=== PATIENT | male | born 1970 | race Asian ===

== ENCOUNTER 2021-12-08 11:03 | Inpatient (IN) | payer OTHER ==
[2021-12-08] VITALS (10 sets, daily range): BP systolic 110–148; BP diastolic 53–81
[~2021-12-08] VITALS: Ht 167.6 cm; Wt 72.2 kg
[2021-12-08] MEDS ORDERED: IOHEXOL 350 MG/ML 100ML INFUS..BTL IV ONE (14:21)
[2021-12-08] MEDS ORDERED: IOHEXOL-350 50ML VIAL IV ONE (14:21)
[2021-12-08] MEDS ORDERED: MIDAZOLAM HCL 1 MG/ML 2ML VIAL ONE ×2 (14:21→15:44)
[2021-12-08] MEDS ORDERED: FENTANYL CITRATE PF 50 MCG/1 ML 2ML VIAL ONE ×2 (14:22→15:44)
[2021-12-08] MEDS ORDERED: LIDOCAINE HCL 1% MDV 50ML VIAL ONE (14:22)
[2021-12-08] MEDS ORDERED: NITROGLYCERIN 50MG VIAL ONE (14:23)
[2021-12-08 14:53] LABS: HEMATOCRIT 40.6 % (42-54); MEAN CORPUSCULAR HEMOGLOBIN 27.6 pg (27.0-33.0); MEAN CORPUSCULAR VOLUME 83.5 fL (79-99); RED BLOOD CELL COUNT(AUTO) 4.86 MIL/uL (4.50-6.20); RED CELL DISTRIBUTION WIDTH 12.5 % (11.0-15.5); WHITE BLOOD COUNT (AUTO) 4.6 K/uL (4.8-10.8)
[2021-12-08 15:15] LABS: HEMOGLOBIN A1C 5.9 % (4.0-6.0)
[2021-12-08 15:18] LABS: MAGNESIUM 2.1 mg/dL (1.80-2.40)
[2021-12-08 15:23] LABS: THYROID STIMULATING HORMONE 0.02 uIU/mL (0.36-3.74)
[2021-12-08 15:26] LABS: INR 1.06 (0.85-1.15); PROTHROMBIN TIME 11.5 SEC (9.6-11.6)
[2021-12-08 15:27] LABS: CREATININE 0.7 mg/dL (0.5-1.5); PARTIAL THROMBOPLASTIN TIME 44.9 SEC (26.3-35.5)
[2021-12-08] MEDS ORDERED: HEPARIN 10,000 UNIT/10ML (1,000 UNIT/ML) VIAL ONE (15:58)
[2021-12-08] MEDS ORDERED: 0.9%NACL 1000ML 1,000 ML IV SCH (16:30)
[2021-12-08] MEDS ORDERED: DEXTROSE 50%-WATER 50 ML DISP.SYRIN IV PRN (16:30)
[2021-12-08] MEDS ORDERED: GLUCAGON 1MG KIT 1 MG ML IM PRN (16:30)
[2021-12-08] MEDS ORDERED: PHARMACY COMMUNICATION MISC SCH (17:00)
[2021-12-08 17:23] LABS: CHOLESTEROL 156 mg/dL (<200); HDL CHOLESTEROL 43 mg/dL (29-71); LDL DIRECT 102 mg/dL (0-99); TRIGLYCERIDES 51 mg/dL (30-200)
[2021-12-08 18:28] LABS: HEMATOCRIT 38.3 % (42-54); MEAN CORPUSCULAR HEMOGLOBIN 27.7 pg (27.0-33.0); MEAN CORPUSCULAR HGB CONC 32.4 g/dL (32.0-36.0); MEAN CORPUSCULAR VOLUME 85.5 fL (79-99); RED BLOOD CELL COUNT(AUTO) 4.48 MIL/uL (4.50-6.20); RED CELL DISTRIBUTION WIDTH 12.6 % (11.0-15.5); WHITE BLOOD COUNT (AUTO) 4.6 K/uL (4.8-10.8)
[2021-12-08 20:17] LABS: HEMATOCRIT 38.7 % (42-54); MEAN CORPUSCULAR HEMOGLOBIN 27.9 pg (27.0-33.0); MEAN CORPUSCULAR HGB CONC 32.8 g/dL (32.0-36.0); MEAN CORPUSCULAR VOLUME 85.1 fL (79-99); RED BLOOD CELL COUNT(AUTO) 4.55 MIL/uL (4.50-6.20); RED CELL DISTRIBUTION WIDTH 12.6 % (11.0-15.5); WHITE BLOOD COUNT (AUTO) 5.1 K/uL (4.8-10.8)
[2021-12-08] MEDS: METOPROLOL TARTRATE 25 MG TAB PO SCH (21:50)
[2021-12-08] MEDS: METHIMAZOLE 10 MG TAB PO SCH (21:50)
[2021-12-09] VITALS (7 sets, daily range): BP systolic 103–124; BP diastolic 58–81
[2021-12-09] MEDS ORDERED: LORAZEPAM 1 MG TABLET ONE (00:36)
[2021-12-09 00:39] LABS: APPEARANCE,URINE Clear (CLEAR); BILIRUBIN,URINE Negative (NEGATIVE); COLOR,URINE Yellow (YELLOW); GLUCOSE, URINE (UA) Negative (NEGATIVE); KETONES,URINE 15 mg/dL (NEGATIVE); LEUKOCYTE ESTERASE ,URINE Negative (NEGATIVE); NITRATE,URINE Negative (NEGATIVE); OCCULT BLOOD,URINE Trace (NEGATIVE); PH,URINE 5.5 (5.0-8.0); PROTEIN,URINE Negative (NEGATIVE); UROBILINOGEN,URINE 0.2 mg/dL (0.2-1.0)
[2021-12-09 00:54] LABS: BACTERIA,URINE Rare /HPF (None Seen); SQUAMOUS EPITHELIAL CELL,UR 0-2 /HPF (0-2); WBC,URINE None Seen /HPF (0-1)
[2021-12-09] MEDS ORDERED: LORAZEPAM 1 MG TABLET PO ONE (01:00)
[2021-12-09 06:26] LABS: BASOPHILS % (AUTO) 0.6 % (0.0-5.0); EOSINOPHILS % (AUTO) 0.9 % (0.0-8.0); HEMATOCRIT 38.8 % (42-54); LYMPHOCYTES % (AUTO) 20.8 % (21.0-51.0); MEAN CORPUSCULAR HEMOGLOBIN 28.3 pg (27.0-33.0); MEAN CORPUSCULAR VOLUME 85.8 fL (79-99); MONOCYTES % (AUTO) 9.3 % (3.0-13.0); NEUTROPHILS % (AUTO) 68.1 % (40.0-77.0); PLATELET COUNT (AUTO) 206 K/uL (130-400); RED BLOOD CELL COUNT(AUTO) 4.52 MIL/uL (4.50-6.20); RED CELL DISTRIBUTION WIDTH 12.7 % (11.0-15.5); WHITE BLOOD COUNT (AUTO) 6.4 K/uL (4.8-10.8)
[2021-12-09 06:33] LABS: ALBUMIN 3.5 g/dL (3.5-5.0); BILIRUBIN,TOTAL 0.8 mg/dL (0.2-1.0); CREATININE 0.8 mg/dL (0.5-1.5); MAGNESIUM 2.2 mg/dL (1.80-2.40); TOTAL PROTEIN, SERUM 6.9 g/dL (6.0-8.3)
[2021-12-09] MEDS: METOPROLOL TARTRATE 25 MG TAB PO SCH ×2 (08:50→20:41)
[2021-12-09] MEDS: ASPIRIN 81 MG EC TAB PO SCH (08:50)
[2021-12-09] MEDS: EZETIMIBE 10 MG TAB PO SCH (08:50)
[2021-12-09] MEDS: PANTOPRAZOLE 40 MG TAB DR PO SCH (08:50)
[2021-12-09] MEDS: METHIMAZOLE 10 MG TAB PO SCH ×2 (08:50→20:41)
[2021-12-09] MEDS ORDERED: ATORVASTATIN 40 MG TABLET PO SCH (21:00)
[2021-12-10 03:37] LABS: BASOPHILS % (AUTO) 0.6 % (0.0-5.0); EOSINOPHILS % (AUTO) 2.1 % (0.0-8.0); HEMATOCRIT 39.2 % (42-54); LYMPHOCYTES % (AUTO) 35.1 % (21.0-51.0); MEAN CORPUSCULAR HGB CONC 32.9 g/dL (32.0-36.0); MONOCYTES % (AUTO) 13.9 % (3.0-13.0); NEUTROPHILS % (AUTO) 48.3 % (40.0-77.0); PLATELET COUNT (AUTO) 194 K/uL (130-400); RED BLOOD CELL COUNT(AUTO) 4.61 MIL/uL (4.50-6.20); RED CELL DISTRIBUTION WIDTH 12.5 % (11.0-15.5); WHITE BLOOD COUNT (AUTO) 4.8 K/uL (4.8-10.8)
[2021-12-10 03:49] VITALS: BP 106/69
[2021-12-10 04:25] LABS: ALBUMIN 3.6 g/dL (3.5-5.0); BILIRUBIN,TOTAL 0.9 mg/dL (0.2-1.0); CREATININE 0.8 mg/dL (0.5-1.5); POTASSIUM 4.3 mmol/L (3.5-5.1); TOTAL PROTEIN, SERUM 7.1 g/dL (6.0-8.3)
[2021-12-10 08:00] VITALS: BP 115/73
[2021-12-10] MEDS: ASPIRIN 81 MG EC TAB PO SCH (08:48)
[2021-12-10] MEDS: EZETIMIBE 10 MG TAB PO SCH (08:48)
[2021-12-10] MEDS: METHIMAZOLE 10 MG TAB PO SCH (08:48)
[2021-12-10] MEDS: METOPROLOL TARTRATE 25 MG TAB PO SCH (08:48)
[2021-12-10] MEDS: PANTOPRAZOLE 40 MG TAB DR PO SCH (08:48)
[2021-12-10] MEDS ORDERED: METH-387 PO (09:19)
[2021-12-10 12:34] VITALS: BP 113/82
[2021-12-23] MEDS ORDERED: [UNRECOGNIZED DRUG - OTHER] PO (09:40)
[2021-12-23] MEDS ORDERED: METO25TA6 PO (09:40)
[2021-12-23] MEDS ORDERED: CLOP75TA32 PO (09:40)
[2021-12-23] MEDS ORDERED: FISH1CAP63 PO (09:40)
[2021-12-23] MEDS ORDERED: ASCO100031 PO (09:40)
[2021-12-23] MEDS ORDERED: ISOS30TA92 PO (09:40)
[2021-12-23] MEDS ORDERED: ASPI-1443 PO (09:40)
[2021-12-23] MEDS ORDERED: ZINC220T4 PO (09:40)
[2021-12-23] MEDS ORDERED: PANT40TA54 PO (09:40)
[2021-12-23] MEDS ORDERED: VITAD50000 PO (09:40)
[2021-12-23] MEDS ORDERED: METH-386 PO (09:40)
[2021-12-25] MEDS ORDERED: FERR-82 PO (02:38)
[2021-12-25] MEDS ORDERED: FURO20TA4 PO (02:46)
[2021-12-25] MEDS ORDERED: PANT40TA55 PO (02:46)
[2021-12-25] MEDS ORDERED: METO-408 PO (02:46)
[2021-12-25] MEDS ORDERED: MEMA10TA11 PO (02:46)
[2021-12-25] MEDS ORDERED: MIRT-22 PO (02:46)
[2021-12-25] MEDS ORDERED: SENN-216 PO (02:46)
[2021-12-25] MEDS ORDERED: ROSU20TA31 PO (02:46)
[2021-12-25] MEDS ORDERED: DONE-53 PO (02:46)
[2021-12-25] MEDS ORDERED: SUCR1TAB2 PO (02:53)
[2021-12-25] MEDS ORDERED: ISOS30TA92 PO (10:58)
[2021-12-25] MEDS ORDERED: CLOP75TA14 PO (10:58)
== END 2021-12-10 15:14 | disposition home or self-care (01) | DRG 282 ==
LOC: 2DH 13:31
PROVIDERS: ADMIT Internal Medicine; ATTEND Internal Medicine
PROC: 4A023N7 Measurement of Cardiac Sampling and Pressure, Left Heart, Percutaneous Approach (ICD-10-PCS; principal; 2021-12-08)
PROC: B2111ZZ Fluoroscopy of Multiple Coronary Arteries using Low Osmolar Contrast (ICD-10-PCS; 2021-12-08)
PROC: B41J1ZZ Fluoroscopy of Other Lower Arteries using Low Osmolar Contrast (ICD-10-PCS; 2021-12-08)
DX: I21.4 Non-ST elevation (NSTEMI) myocardial infarction (principal); E05.00 Thyrotoxicosis with diffuse goiter without thyrotoxic crisis or storm; E78.5 Hyperlipidemia, unspecified; K21.9 Gastro-esophageal reflux disease without esophagitis; I25.110 Atherosclerotic heart disease of native coronary artery with unstable angina pectoris; D72.819 Decreased white blood cell count, unspecified; Z79.82 Long term (current) use of aspirin; Z79.899 Other long term (current) drug therapy
CPT/HCPCS: 36415; 76536; 80048; 80053; 80061; 81001; 82550; 83036; 83735; 84145; 84439; 84443; 84445; 84481; 85025; 85027; 85347; 85610; 85651; 85730; 86140; 86376; 86800; 87804; 93458; 99156; 99157; C1894; G0378; J1644; J2250; J3010; J3490; J7030; Q9967

== ENCOUNTER 2022-02-08 13:11 | Emergency (ER) | payer OTHER ==
[~2022-02-08] VITALS: Ht 165.1 cm; Wt 72.6 kg
[~2022-02-08 13:11] MED LIST: ASCO100031 PO; ASPI-1443 PO; CLOP75TA14 PO; DONE-53 PO; FERR-82 PO; FURO20TA4 PO; ISOS30TA92 PO; MEMA10TA11 PO; METO-408 PO; MIRT-22 PO; PANT40TA54 PO; ROSU20TA31 PO; SENN-216 PO; SUCR1TAB2 PO; VITAD50000 PO
[2022-02-08] MEDS ORDERED: NITROGLYCERIN 1GM OINT 1 INCH/1GM TD ONE (14:00)
[2022-02-08] MEDS ORDERED: ASPIRIN 81MG CHEW TAB PO ONE (14:00)
[2022-02-08 14:40] LABS: BASOPHILS % (AUTO) 0.9 % (0.0-5.0); EOSINOPHILS % (AUTO) 1.4 % (0.0-8.0); HEMATOCRIT 39.3 % (42-54); LYMPHOCYTES % (AUTO) 41.3 % (21.0-51.0); MEAN CORPUSCULAR HEMOGLOBIN 28.1 pg (27.0-33.0); MEAN CORPUSCULAR HGB CONC 33.1 g/dL (32.0-36.0); MEAN CORPUSCULAR VOLUME 85.1 fL (79-99); MONOCYTES % (AUTO) 7.4 % (3.0-13.0); NEUTROPHILS % (AUTO) 48.8 % (40.0-77.0); PLATELET COUNT (AUTO) 216 K/uL (130-400); RED BLOOD CELL COUNT(AUTO) 4.62 MIL/uL (4.50-6.20); RED CELL DISTRIBUTION WIDTH 12.6 % (11.0-15.5); WHITE BLOOD COUNT (AUTO) 4.4 K/uL (4.8-10.8)
[2022-02-08 14:49] LABS: CREATININE 0.9 mg/dL (0.5-1.5); POTASSIUM 4.3 mmol/L (3.5-5.1)
[2022-02-08 17:12] VITALS: BP 120/78
== END 2022-02-08 17:37 | disposition home or self-care (01) ==
LOC: EDH 13:11
DX: R07.89 Other chest pain (principal); E78.00 Pure hypercholesterolemia, unspecified; Z88.6 Allergy status to analgesic agent; Z88.1 Allergy status to other antibiotic agents; Z88.8 Allergy status to other drugs, medicaments and biological substances; Z79.899 Other long term (current) drug therapy; Z79.82 Long term (current) use of aspirin; Z98.890 Other specified postprocedural states
CPT/HCPCS: 36415; 71045; 80048; 84484; 85025; 93005